=== PATIENT | female | born 1975 | race Two or more races ===

== ENCOUNTER 2024-09-09 13:32 | Emergency (ER) | payer OTHER, SELFPAY ==
[2024-09-09] VITALS (28 sets, daily range): BP systolic 75–133; BP diastolic 37–107; PULSE 71–180; RESP 7–42; TEMP 36.6–37.3; O2SAT 91–99; BMI 35.6; BMI 35.9
--- NOTE | 2024-09-09 13:39 | EKG_ITS ---
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
--- NOTE | 2024-09-09 13:41 | XR_ITS ---
Examination: AP chest single view TECHNIQUE: AP portable upright chest single view Exam date and time: September 09, 2024 at 1630 hours INDICATIONS: Shortness of breath beginning 2 days ago. FINDINGS: Normal heart size Lungs are clear. The osseous structures are intact IMPRESSION: No active disease
[2024-09-09] MEDS: ADENOSINE INJ 3 MG/ML VIAL 6 MG IVP (14:10)
--- NOTE | 2024-09-09 14:11 | EKG_ITS ---
[facility] Test Date: 2024-09-09 Pat Name: NEYMAR ARAGON Department: Room: - Gender: Female Clerk Rating: : 1975 Requested By: Balaji Gudino Order Number: [id number] Reading MD: Balaji Gudino Measurements Intervals [place] Rate: 103 P: 48 HI: 170 QRS: 7 QRSD: 92 T: 33 QT: 334 QTc: 439 Interpretive Statements SINUS TACHYCARDIA INCOMPLETE RIGHT BUNDLE BRANCH BLOCK [90+ ms QRS DURATION, TERMINAL R IN V1/V2, 40+ ms S IN I/aVL/V4/V5/V6] ABNORMAL RHYTHM ECG Compared to ECG 09/09/2024 13:44:14 Incomplete right bundle-branch block now present Supraventricular tachycardia no longer present ST (T wave) deviation no longer present /store/S0/[id number]/ecg/[id number].pdf
--- NOTE | 2024-09-09 14:12 | PD.EDARRY ---
ED Arrhythmia Palp. RME/HPI General Chief Complaint: General Adult/Misc Complain Stated Complaint: BILAT HAND TINGLING, HR 189 AT WORK Time Seen by Provider: 09/09/24 14:11 Arrival date/time: 09/09/24 13:32 RME / HPI RME / HPI narrative: 49 year old female presents to the ED for evaluation of palpitations today. States symptoms began while working and remaining constant since. Accompanied by both hands feeling tingling, nausea, and vomiting. No other symptoms reported. Denies recent illness, fevers, chills, cough, shortness of breath, abdominal pain, diarrhea, or urinary symptoms. adds patient does have history of anxiety and feels that may be a contributing factor. Related Data Home Medications ?Medication ?Instructions ?Recorded ?Confirmed No Known Home Medications 08/09/20 08/09/20 Allergies Allergy/AdvReac Type Severity Reaction Status Date / Time No Known Allergies Allergy Verified 09/09/24 13:36 Review of Systems Review of Systems Narrative Review of Systems: Constitutional: DENIES; Fevers Eyes: DENIES; Loss of vision Head/Ear/Nose: DENIES; Loss of hearing Throat: DENIES; Dysphagia Cardiovascular: SEE HPI +palpitations. DENIES; Chest pain, dyspnea or syncope Respiratory: DENIES; Shortness of breath Gastrointestinal: SEE HPI +nausea, vomiting. DENIES; Rectal bleeding or melena. Genitourinary: DENIES; Dysuria (painful or difficult urination) Musculoskeletal: SEE HPI +bilateral hands tingling. DENIES; Arthralgia (pain in a joint),; Skin: DENIES; Rash Neurological: DENIES; Loss of function or movement Psychiatric: DENIES; recent major life stressor, emotional problem, illicit drug use or abuse Endocrinology: DENIES; Weight change Hematologic/Lymphatic: DENIES; Abnormal bruising Allergic/Immunologic: DENIES; Urticaria (hives) Past Medical History Past Medical History NEUROLOGIC: Negative Neurological Disorders or Seizures CARDIAC: Negative Cardiac Disorders or Congestive Heart Failure RESPIRATORY: Negative Chronic Obstructive Pulmonary Disease (COPD) GASTROINTESTINAL: Positive Gastrointestinal Disorders, Gall Bladder Disease, Hemorrhoids and Obesity GENITOURINARY: Negative Genitourinary Disorders or Renal Disease REPRODUCTIVE: Positive Previous Pregnancies (x3) MUSCULOSKELETAL: Negative Musculoskeletal Disorders ENDOCRINE: Negative Endocrine Disorders, Diabetes Mellitus Type 1 or Diabetes Mellitus Type 2 HEMATOLOGIC: Negative Blood Disorders OTHER HISTORY: Positive Anesthesia Reactions (nauseated) Family History FAMILY HISTORY: Positive Family Cardiac Disorders, Family Gastrointestinal Problems and Family Cancer Surgical History SURGICAL: Positive Tubal Ligation Social History SMOKING STATUS: Never smoker ED Exam Narrative Physical exam: Physical Exam: General: The vital signs were reviewed. Patient has obvious SVT 171 on the monitor. Patient is tolerating well the patient is non-toxic, in no apparent distress and appears healthy with a patent airway, no respiratory distress and has no apparent circulatory problems. Head & Scalp: Normocephalic, atraumatic. Face: Appears normal and is without lesions, deformity. Ears: Left external pinna appears normal. Right external pinna appears normal. Eyes: The sclera is anicteric. No obvious photophobia. The Left and Right Orbit/Lid/Conjunctiva appears normal without swelling, discoloration or injection. Nose: The nose is without deformity, discharge or tenderness; Throat: Appears normal. The mucous membranes are pink and moist without exudates, redness or mass seen. The tongue appears normal. Neck: The neck is supple and no apparent mass or adenopathy. Chest: The chest wall is normal in size and symmetry and has no chest wall tenderness or crepitus. The patient displays normal ventilator effort without retractions, accessory muscle use and has adequate air movement bilaterally with no wheezes and no rales. Cardiovascular: Regular rate and rhythm; No murmurs, rubs, or gallops; Gastrointestinal: The abdomen appears normal. No obvious hernias or mass. The abdomen is soft and benign, non-distended, with no pain, no guarding and no rebound tenderness. Bowel sounds are present and normal sounding. No CVA tenderness. Genitourinary: Back/Spine: Normal inspection Extremities/Musculoskeletal/lymphatic: The bilateral upper and lower extremities are warm. There is no evidence of arterial insufficiency. There is no evidence of venous insufficiency/edema. The patient spontaneously moves bilateral upper and lower extremities with no pain and no limitation of movement. There is no apparent, injury or trauma. Skin: The skin is warm, dry and intact. No rashes. No petechia. No purpura. No abnormal bruising. The color is appropriate with no cyanosis. Mental status/Psychiatric: Mental status is appropriate for age. The patient has no apparent delusions, visual hallucinations, no apparent audible hallucinations. The patient has no apparent suicidal thoughts/ideation and no apparent homicidal thoughts/ideation. Neurological: The patient is awake, alert, interactive, cordial, cooperative and is oriented to name and situation. The patient follows commands and answers historical question with no impairment. There is no visual disturbance apparent. The pupils are equal and reactive bilaterally with normal eye movements and no diplopia The bilateral upper and lower extremities have normal strength, normal range of motion and normal functioning. The gait, station and balance appear to be baseline with no acute change Course Course Course Narrative: chest xray ordered to help determine etiology of chest pain. Quality Measures none Orders Category Date Time Status Clinical Lab Assistant NOW Care 09/09/24 13:42 Active EKG (ED ONLY) *Do not use* NOW Care 09/09/24 13:39 Completed EKG (ED ONLY) *Do not use* NOW Care 09/09/24 14:11 Active Insert IV NOW Care 09/09/24 13:42 Active EKG (ED Only) Stat Exams 09/09/24 13:39 Draft EKG (ED Only) Stat Exams 09/09/24 14:11 Ordered XR chest 1V portable Stat Exams 09/09/24 13:41 Ordered B-Type Natriuretic Peptide Stat Lab 09/09/24 13:41 Ordered CBC Stat Lab 09/09/24 13:41 Ordered Comprehensive Metabolic Panel Stat Lab 09/09/24 13:41 Ordered Drug Screen,Urine Stat Lab 09/09/24 13:41 Ordered Free T4 (Free Thyroxine) Stat Lab 09/09/24 13:41 Ordered HCG,Qualitative Serum Stat Lab 09/09/24 13:41 Ordered Magnesium Stat Lab 09/09/24 13:41 Ordered Partial Thromboplastin Time Stat Lab 09/09/24 13:41 Ordered Prothrombin Time with INR Stat Lab 09/09/24 13:41 Ordered TSH [Thyroid Stimulating Hormone] Stat Lab 09/09/24 13:41 Ordered Troponin I Stat Lab 09/09/24 13:41 Ordered Adenosine 6mg Inj [Adenocard Inj] Med 09/09/24 14:04 Discontinued 12 mg IVP X1 ONE Adenosine 6mg Inj [Adenocard Inj] Med 09/09/24 14:04 Discontinued 6 mg IVP X1 ONE Vital Signs Vital signs: Vital Signs Pulse Rate 174 H 09/09/24 13:42 Arrhythmia/Palpitations MDM Narrative MDM Narrative:: Patient is a 49-year-old who presents to our department with a rapid heart rate with SVT on initial EKG and monitor. She has no previous documented SVT although she has had several episodes of clammy nauseating events that were transient and intermittent. All this started in the last couple months. She does drink lots of caffeine. states she has lots of anxiety in her life. Patient was verbally consented for adenosine and explained and she agreed. She was laid flat and while on the monitor and her right arm in the air with Hep-Lock in her right AC 6 mg adenosine was given rapid Tuan and she converted from 171 SVT rate to initially upper 80s 90s to 110 with a sinus rhythm mild sinus tach. Patient tolerated the conversion well. Medical workup was ordered and reveals>>>>>>>>>> revealed a white count of 10.4 hemoglobin of 17.2 which is polycythemia platelet count was normal. PT/INR within normal limits sodium 140 potassium 3.5 chloride 105 CO2 24 BUN 17 creatinine 1.0 AST 42 ALT 61 troponin initially was normal or negative and then the second troponin was bumped at 0.103 at 1717 hrs. She be noted the second troponin was gone because the patient started complaining some nausea and some vague chest discomfort as if she had indigestion did not throw up. At that time she was in sinus rhythm and she had converted from her SVT and initially appeared to be doing quite well after the chemical cardioversion. I reevaluated this patient multiple times and at 1845 hrs. patient is now complaining of a slight headache says she just does not feel right says does not feel right does not states she is having a chest pain or pressure but an uneasiness. D-dimer came back negative I do not believe she has a pulmonary embolus. thinks that she is under a lot of stress and this is anxiety related. At this time because she complained of a headache, get a CT noncontrast study because of the vague chest symptoms and elevated troponin go ahead and get a CTA of the chest to rule out dissection and because of the nausea symptoms we will get a CT of her abdomen to follow the CTA since she has some vague abdominal discomfort. Honestly the day she does not appear to have any hard objective complaints or findings clinically but she had same time she is not feeling normal with nonspecific symptoms. Care of this patient goes to Dr. Hassan at 1900 hrs. follow-up on the further hydration CT of the head chest and abdomen and the third troponin. Patient data External records reviewed:: [facility] previous records (I reviewed ED visit on 06/13/2020) Clinical information provided by:: patient Social determinants that could affect healthcare access:: mental health (Anxiety ) Patient has the following chronic illnesses:: Anxiety How is presenting disease/condition affected by chronic disease/condition?: exacerbated by Evaluation data The following diagnostics were reviewed and interpreted by me:: lab results, radiology exam(s) and EKG tracing(s) (EKG #1 @ 1344 shows SVT, rate 169, no STEMI. EKG #2 @ 1413 after Adenosine shows sinus tachycardia, rate 103, no STEMI. ) Lab and/or radiology exams considered but not ordered:: None Interpretation Summary: Ordering Physician: Yesenia BAUM)Jorge NP Date of Service: 09/09/24 Procedure(s): XR chest 1V portable Accession Number(s): [id number] cc: Yesenia BAUM),Jorge RDZ; Finn Casey MD~ Examination: AP chest single view TECHNIQUE: AP portable upright chest single view Exam date and time: September 09, 2024 at 1630 hours INDICATIONS: Shortness of breath beginning 2 days ago. FINDINGS: Normal heart size Lungs are clear. The osseous structures are intact IMPRESSION: No active disease Dictated By: Finn Casey MD Signed By: <Electronically signed by Finn Casey MD in OV> 09/09/24 1514 Medications / Prescriptions Medications or Prescriptions considered but not ordered:: None Medication administrations:: Medication Administration History Discontinued Medications Adenosine (Adenosine Inj 3 Mg/Ml Vial) 6 mg IVP X1 ONE Stop: 09/09/24 14:05 Last Admin: 09/09/24 14:10 Dose: 6 mg Documented By: CONSTANZA Adenosine (Adenosine Inj 3 Mg/Ml Vial) 12 mg IVP X1 ONE Stop: 09/09/24 14:05 Last Admin: 09/09/24 14:10 Dose: Not Given Documented By: CONSTANZA Non-Admin Reason: Discontinued Consultations Consultation(s) initiated? (list below): No Diagnosis Differential diagnosis arrhythmia/palpitations: palpitations, anxiety, sinus tachycardia, artial flutter, supraventricular tachycardia, ventricular tachycardia and WPW Most likely diagnosis given after review of the tests above:: Patient presents with SVT etiology unclear uses lots of caffeine, elevated troponin etiology unclear unexplained nausea vague chest discomfort and headache further workup pending as mentioned in the MDM and care to Dr. Hassan at 1900 hrs. Admission Indicated Admission indicated?: not indicated Explain why admission is indicated or not indicated:: Patient signed out to Dr. Hassan Admission Request Was there a request for admission?: No Disposition Plan Disposition Plan: other (specify) (Signed out to Dr. Hassan pending reassessment. ) Critical Care Time Critical Care Time Critical Care Time: Yes Total Critical Care Time (min.): 65 Attestation: What appeared to be a relatively simple SVT chemical cardioversion has evolved to increasing chest vague discomfort nausea unexplained and increasing troponin with some minimally elevated transaminases and no other positive finding. The urine analysis is still pending. Follow-up CTs of the head chest and abdomen are pending and the care goes to Dr. Hassan to follow-up on these. The high probability of sudden, clinically significant deterioration in the patient's condition required the highest level of my preparedness to intervene urgently. The services I provided to this patient were to treat and/or prevent clinically significant deterioration. Services included the following: chart data review, reviewing nursing notes and/or old charts, documentation time, data integrity consultant collaboration regarding findings and treatment options, medication orders and management, direct patient care, vital sign assessments and ordering, interpreting and reviewing diagnostic studies and lab tests. Aggregate critical care time includes only time during which I was engaged in work directly related to the patient's care, as described above, whether at bedside or elsewhere in the Emergency Department. It did not include time spent performing other reported procedures or the services of residents, students, nurses or physician assistants. Discharge Plan Prescriptions/Referrals Prescriptions/Med Rec: No Action No Known Home Medications Problem List Clinical Impression: SVT (supraventricular tachycardia), Elevated troponin, Nausea, Marijuana use, Headache, Chest discomfort Patient/Caregiver Discharge Instructions Print Language: Sami
[2024-09-09 14:17] LABS: Basophils # (Auto) 0.1 Thou/mm3 (0.0-0.2); Basophils % (Auto) 1 % (0-2.5); Eosinophils # (Auto) 0.1 Thou/mm3 (0.0-0.5); Eosinophils % (Auto) 1 % (0-10); Hematocrit 49.7 % (36.0-46.0); Hemoglobin 17.2 g/dL (12.0-16.0); Immature Granulocytes % (Auto) 0 % (0-0); Immature Granulocytes Auto 0.02 Thou/mm3 (0.00-0.00); Lymphocytes # (Auto) 3.3 Thou/mm3 (1.0-4.8); Lymphocytes % (Auto) 31 % (10-50); Mean Corpuscular HGB Conc 34.6 g/dl (31.0-37.0); Mean Corpuscular Hemoglobin 28.8 pg (25.0-35.0); Mean Corpuscular Volume 83 fL (80-100); Monocytes # (Auto) 0.6 Thou/mm3 (0.0-0.8); Monocytes % (Auto) 6 % (0-12); Neutrophils # (Auto) 6.4 Thou/mm3 (1.8-7.7); Neutrophils % (Auto) 61 % (37-80); Nucleated Red Blood Cell % 0 /100 WBC (0); Platelet Count 310 Thou/mm3 (140-440); Red Blood Count 5.98 Miln/mm3 (4.00-5.20); White Blood Count 10.4 Thou/mm3 (3.6-11.0)
[2024-09-09 14:30] LABS: Partial Thromboplastin Time 24.5 Seconds (22.0-36.0); Prothrombin Time 10.9 Seconds (9.0-12.2)
[2024-09-09 14:36] LABS: HCG,Qualitative Serum Negative
[2024-09-09 14:37] LABS: B-Type Natriuretic Peptide 22 pg/mL (0-100)
[2024-09-09 14:41] LABS: Alanine Aminotransferase 61 U/L (10-49); Albumin, Serum 5.1 gm/dL (3.5-5.0); Albumin/Globulin Ratio 1.5 (1.2-2.2); Alkaline Phosphatase 98 U/L (46-116); Anion Gap 11 (7-16); Aspartate Amino Transferase 42 U/L (0-34); BUN/Creatinine Ratio 17 Ratio (12-20); Bilirubin,Total 0.6 mg/dL (0.3-1.2); Blood Urea Nitrogen 17 mg/dL (9-23); Carbon Dioxide 24.5 mMol/L (20.0-31.0); Chloride 105 mMol/L (98-107); Free T4 (Free Thyroxine) 1.17 ng/dL (0.89-1.76); Globulin 3.3 gm/dL (2.3-3.5); Glucose 115 mg/dL (74-106); Magnesium 1.8 mg/dL (1.6-2.6); Osmolality,Calculated 281 (275-295); Potassium 3.5 mMol/L (3.4-5.1); Sodium 140 mMol/L (136-145); Thyroid Stimulating Hormone 4.29 uIU/mL (0.55-4.78); Total Protein 8.4 gm/dL (5.7-8.2); Troponin I < 0.020 ng/mL (0.0-0.045); eGFR > 60 See Note
[2024-09-09] MEDS: ONDANSETRON INJ 2 MG/ML INJ 2 ML 4 MG IV ×2 (17:34→19:31)
[2024-09-09] MEDS: RINGERS LACTATED 1000 ML 1,000 ML 999 ML IV (17:35)
[2024-09-09 17:38] LABS: Amphetamine/Methamp Scrn,U Negative (Negative); Barbiturate Screen,Urine Negative (Negative); Benzodiazepines Screen,Urine Negative (Negative); Benzoylecgonine Screen, Ur Negative (Negative); Fentanyl Screen,Urine Negative (Negative); Opiate Screen,Urine Negative (Negative); THC Screen,Urine Positive (Negative)
[2024-09-09 18:01] LABS: Troponin I 0.103 ng/mL (0.0-0.045)
--- NOTE | 2024-09-09 18:58 | XR_ITS ---
Examination: CT brain head without contrast. 2-D sagittal coronal reconstructions Date and time of exam:September 09, 2024 1935 hrs. Indications: Headaches intermittent beginning 2 weeks ago with hand paresthesias CTDI: vol (mGy):49.7 DLP: (mGycm):1030 Technique: Multiple CT axial sections of the brain have been obtained, 5 mm slice thickness. Contrast has not been administered. 2-D sagittal, coronal reconstructions have been obtained Low dose protocols were performed. One or more of the following dose reduction techniques were used; automated exposure control, adjustment of the mA and/or KV according to patient size, use of iterative reconstruction technique. Findings: No significant ventricular enlargement. Intra-axial or extra-axial hemorrhage density is not seen. No mass effect or midline shift Basal cisterns are not remarkable. Fourth ventricle is midline. Cranial vault intact. Impression: Negative for acute hemorrhage, mass effect or midline shift Brain MRI follow-up would best assess for demyelinating disease, acute ischemic change
--- NOTE | 2024-09-09 18:58 | XR_ITS ---
Examination: CTA chest with intravenous contrast 2-D reconstructions 3-D reconstructions, vascular Date and time of exam: September 09, 2024 at 0743 hrs. Indications: Chest pain shortness of breath elevated troponin today CTDI: vol (mGy) 11.3 DLP: (mGycm) 394 Technique: Multiple axial sections of the thorax have been obtained. 3 mm slice thickness, from below the hemidiaphragms to above the apices of the lungs. Mediastinal and lung density settings have been obtained. 2-D sagittal and coronal reconstructions. 3-D angiographic renderings, 3-D volume renderings, 3D post processing, vascular maximum intensity projections obtained. Contrast administered is 100 cc Isovue-370.. Low dose protocols were performed. One or more of the following dose reduction techniques were used; automated exposure control, adjustment of the mA and/or KV according to patient size, use of iterative reconstruction technique. Findings: Nodular breast architecture, the largest nodule 10 mm medial left breast image 65 AP dimension ascending thoracic aorta 3.6 cm no thoracic aortic aneurysm dilatation or dissection Pulmonary artery segments are not enlarged No pulmonary artery emboli No paratracheal tracheobronchial or bronchopulmonary adenopathy No pneumonia or pulmonary edema or pleural disease Diffuse fatty liver Absent gallbladder Spleen not enlarged No pancreatic or adrenal mass Impression: Nodular breast architecture, the largest nodule 10 mm medial left breast Recommend elective bilateral breast sonography follow-up Negative for thoracic aortic aneurysm dilatation or dissection Negative for pulmonary artery emboli No mediastinal lymphadenopathy No pneumonia, pulmonary edema or pleural disease
--- NOTE | 2024-09-09 18:58 | XR_ITS ---
Examination: CT abdomen with intravenous contrast CT pelvis with intravenous contrast 2-D coronal reconstructions 2-D sagittal reconstructions Date and time of exam:September 09, 2024 1940 hrs. Indications: Abdominal discomfort today elevated troponin. CTDI: vol (mGy) 14.4 DLP: (mGycm) 836 Technique: Multiple axial sections of the abdomen and pelvis have been obtained. 64 slice high-resolution scanner used. 3 mm axial sections have been obtained, post intravenous injection 100 cc Isovue-370 2-D sagittal, coronal reconstructions obtained. Low dose protocols were performed. One or more of the following dose reduction techniques were used; automated exposure control, adjustment of the mA and/or KV according to patient size, use of iterative reconstruction technique. Findings: No focal liver or splenic lesions Absent gallbladder No extrahepatic biliary tract dilatation No pancreatic or adrenal mass No renal or ureteral calculi, no hydronephrosis No pericecal inflammatory change No bowel obstruction No diverticulitis Posterior uterine body mass, sagittal image 131, 39 mm Intact osseous structures Impression: No renal or ureteral calculi, no hydronephrosis No abdominal aortic aneurysm dilatation or dissection No CT findings of appendicitis bowel obstruction or diverticulitis 39 mm posterior uterine body mass, recommend pelvic sonography follow-up
[2024-09-09] MEDS: SODIUM CHLORIDE 0.9% 1000 ML 1,000 ML 999 ML IV (19:12)
--- NOTE | 2024-09-09 19:26 | EKG_ITS ---
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
[2024-09-09] MEDS: LORazepam 2 MG/ML VIAL 1 MG IVP (19:31)
--- NOTE | 2024-09-09 19:33 | EDNOTE_ITS ---
Emergency Room Addendum <Faith Ruth - Last Filed: 09/09/24 21:59> Addendum Narrative: 0600: Care assumed from Dr. Gudino, the previous shift emergency physician. Past medical, surgical, social and family history reviewed. Vitals and home medications reviewed. I will assume the care of the patient at this time, pending abdomen/pelvis CT, chest CTA, head CT, remainder of labs, and final disposition. Please refer to the emergency department record for history and examination from initial visit.? Physical exam by me shows patient under no acute distress at this time. RADIOLOGY Procedure(s): CT head/brain wo con Accession Number(s): [id number] cc: Balaji Gudino MD; Finn Casey MD; Robyn Vargas MD~ Examination: CT brain head without contrast. 2-D sagittal coronal reconstructions Date and time of exam:September 09, 2024 1935 hrs. Indications: Headaches intermittent beginning 2 weeks ago with hand paresthesias CTDI: vol (mGy):49.7 DLP: (mGycm):1030 Technique: Multiple CT axial sections of the brain have been obtained, 5 mm slice thickness. Contrast has not been administered. 2-D sagittal, coronal reconstructions have been obtained Low dose protocols were performed. One or more of the following dose reduction techniques were used; automated exposure control, adjustment of the mA and/or KV according to patient size, use of iterative reconstruction technique. Findings: No significant ventricular enlargement. Intra-axial or extra-axial hemorrhage density is not seen. No mass effect or midline shift Basal cisterns are not remarkable. Fourth ventricle is midline. Cranial vault intact. Impression: Negative for acute hemorrhage, mass effect or midline shift Brain MRI follow-up would best assess for demyelinating disease, acute ischemic change Dictated By: Finn Casey MD Procedure(s): CT angio chest Accession Number(s): [id number] cc: Balaji Gudino MD; Finn Casey MD; Robyn Vargas MD~ Examination: CTA chest with intravenous contrast 2-D reconstructions 3-D reconstructions, vascular Date and time of exam: September 09, 2024 at 0743 hrs. Indications: Chest pain shortness of breath elevated troponin today CTDI: vol (mGy) 11.3 DLP: (mGycm) 394 Technique: Multiple axial sections of the thorax have been obtained. 3 mm slice thickness, from below the hemidiaphragms to above the apices of the lungs. Mediastinal and lung density settings have been obtained. 2-D sagittal and coronal reconstructions. 3-D angiographic renderings, 3-D volume renderings, 3D post processing, vascular maximum intensity projections obtained. Contrast administered is 100 cc Isovue-370.. Low dose protocols were performed. One or more of the following dose reduction techniques were used; automated exposure control, adjustment of the mA and/or KV according to patient size, use of iterative reconstruction technique. Findings: Nodular breast architecture, the largest nodule 10 mm medial left breast image 65 AP dimension ascending thoracic aorta 3.6 cm no thoracic aortic aneurysm dilatation or dissection Pulmonary artery segments are not enlarged No pulmonary artery emboli No paratracheal tracheobronchial or bronchopulmonary adenopathy No pneumonia or pulmonary edema or pleural disease Diffuse fatty liver Absent gallbladder Spleen not enlarged No pancreatic or adrenal mass Impression: Nodular breast architecture, the largest nodule 10 mm medial left breast Recommend elective bilateral breast sonography follow-up Negative for thoracic aortic aneurysm dilatation or dissection Negative for pulmonary artery emboli No mediastinal lymphadenopathy No pneumonia, pulmonary edema or pleural disease Dictated By: Finn Casey MD ---- Procedure(s): CT abdomen pelvis w con Accession Number(s): [id number] cc: Balaji Gudino MD; Finn Casey MD; Robyn Vargas MD~ Examination: CT abdomen with intravenous contrast CT pelvis with intravenous contrast 2-D coronal reconstructions 2-D sagittal reconstructions Date and time of exam:September 09, 2024 1940 hrs. Indications: Abdominal discomfort today elevated troponin. CTDI: vol (mGy) 14.4 DLP: (mGycm) 836 Technique: Multiple axial sections of the abdomen and pelvis have been obtained. 64 slice high-resolution scanner used. 3 mm axial sections have been obtained, post intravenous injection 100 cc Isovue-370 2-D sagittal, coronal reconstructions obtained. Low dose protocols were performed. One or more of the following dose reduction techniques were used; automated exposure control, adjustment of the mA and/or KV according to patient size, use of iterative reconstruction technique. Findings: No focal liver or splenic lesions Absent gallbladder No extrahepatic biliary tract dilatation No pancreatic or adrenal mass No renal or ureteral calculi, no hydronephrosis No pericecal inflammatory change No bowel obstruction No diverticulitis Posterior uterine body mass, sagittal image 131, 39 mm Intact osseous structures Impression: No renal or ureteral calculi, no hydronephrosis No abdominal aortic aneurysm dilatation or dissection No CT findings of appendicitis bowel obstruction or diverticulitis 39 mm posterior uterine body mass, recommend pelvic sonography follow-up Dictated By: Finn Casey MD <Robyn Hassan MD - Last Filed: 09/09/24 23:28> Addendum Narrative: 0600: Care assumed from Dr. Gudino, the previous shift emergency physician. Past medical, surgical, social and family history reviewed. Vitals and home medications reviewed. I will assume the care of the patient at this time, pending abdomen/pelvis CT, chest CTA, head CT, remainder of labs, and final disposition. Please refer to the emergency department record for history and examination from initial visit.? On reevaluation the patient is complaining of chest pain. Not diaphoretic. Physical exam by me shows patient under no acute distress at this time. Patient is sleeping resting comfortably. She awakens easily. Heart rate is approximately 90. Blood pressure stable at 120/82. Mildly elevated troponin likely secondary to SVT. trop x 2 minimally elevated. Risk and benefits were discussed. At this time the family feels very comfortable going home. Patient will get follow-up with primary care physician and referral if needed. Patient made aware that her CT angio shows that she has a breast nodule. The patient states that her last mammogram was 2 years ago and will get another mammogram with her primary care physician as an outpatient. RADIOLOGY Procedure(s): CT head/brain wo [facility] Accession Number(s): [id number] cc: Balaji Gudino MD; Finn Casey MD; Robyn Vargas MD~ Examination: CT brain head without contrast. 2-D sagittal coronal reconstructions Date and time of exam:September 09, 2024 1935 hrs. Indications: Headaches intermittent beginning 2 weeks ago with hand paresthesias CTDI: vol (mGy):49.7 DLP: (mGycm):1030 Technique: Multiple CT axial sections of the brain have been obtained, 5 mm slice thickness. Contrast has not been administered. 2-D sagittal, coronal reconstructions have been obtained Low dose protocols were performed. One or more of the following dose reduction techniques were used; automated exposure control, adjustment of the mA and/or KV according to patient size, use of iterative reconstruction technique. Findings: No significant ventricular enlargement. Intra-axial or extra-axial hemorrhage density is not seen. No mass effect or midline shift Basal cisterns are not remarkable. Fourth ventricle is midline. Cranial vault intact. Impression: Negative for acute hemorrhage, mass effect or midline shift Brain MRI follow-up would best assess for demyelinating disease, acute ischemic change Dictated By: Finn Casey MD Procedure(s): CT angio chest Accession Number(s): [id number] cc: Balaji Gudino MD; Finn Casey MD; Robyn Vargas MD~ Examination: CTA chest with intravenous contrast 2-D reconstructions 3-D reconstructions, vascular Date and time of exam: September 09, 2024 at 0743 hrs. Indications: Chest pain shortness of breath elevated troponin today CTDI: vol (mGy) 11.3 DLP: (mGycm) 394 Technique: Multiple axial sections of the thorax have been obtained. 3 mm slice thickness, from below the hemidiaphragms to above the apices of the lungs. Mediastinal and lung density settings have been obtained. 2-D sagittal and coronal reconstructions. 3-D angiographic renderings, 3-D volume renderings, 3D post processing, vascular maximum intensity projections obtained. Contrast administered is 100 cc Isovue-370.. Low dose protocols were performed. One or more of the following dose reduction techniques were used; automated exposure control, adjustment of the mA and/or KV according to patient size, use of iterative reconstruction technique. Findings: Nodular breast architecture, the largest nodule 10 mm medial left breast image 65 AP dimension ascending thoracic aorta 3.6 cm no thoracic aortic aneurysm dilatation or dissection Pulmonary artery segments are not enlarged No pulmonary artery emboli No paratracheal tracheobronchial or bronchopulmonary adenopathy No pneumonia or pulmonary edema or pleural disease Diffuse fatty liver Absent gallbladder Spleen not enlarged No pancreatic or adrenal mass Impression: Nodular breast architecture, the largest nodule 10 mm medial left breast Recommend elective bilateral breast sonography follow-up Negative for thoracic aortic aneurysm dilatation or dissection Negative for pulmonary artery emboli No mediastinal lymphadenopathy No pneumonia, pulmonary edema or pleural disease Dictated By: Finn Casey MD Procedure(s): CT abdomen pelvis w con Accession Number(s): [id number] cc: Balaji Gudino MD; Finn Casey MD; Robyn Vargas MD~ Examination: CT abdomen with intravenous contrast CT pelvis with intravenous contrast 2-D coronal reconstructions 2-D sagittal reconstructions Date and time of exam:September 09, 2024 1940 hrs. Indications: Abdominal discomfort today elevated troponin. CTDI: vol (mGy) 14.4 DLP: (mGycm) 836 Technique: Multiple axial sections of the abdomen and pelvis have been obtained. 64 slice high-resolution scanner used. 3 mm axial sections have been obtained, post intravenous injection 100 cc Isovue-370 2-D sagittal, coronal reconstructions obtained. Low dose protocols were performed. One or more of the following dose reduction techniques were used; automated exposure control, adjustment of the mA and/or KV according to patient size, use of iterative reconstruction technique. Findings: No focal liver or splenic lesions Absent gallbladder No extrahepatic biliary tract dilatation No pancreatic or adrenal mass No renal or ureteral calculi, no hydronephrosis No pericecal inflammatory change No bowel obstruction No diverticulitis Posterior uterine body mass, sagittal image 131, 39 mm Intact osseous structures Impression: No renal or ureteral calculi, no hydronephrosis No abdominal aortic aneurysm dilatation or dissection No CT findings of appendicitis bowel obstruction or diverticulitis 39 mm posterior uterine body mass, recommend pelvic sonography follow-up Dictated By: Finn Casey MD
[2024-09-09] MEDS: METOCLOPRAMIDE INJ 5 MG/ML VIAL 2 ML 10 MG IVP (20:13)
[2024-09-09] MEDS: SODIUM CHLORIDE 0.9% 1000 ML 1,000 ML 150 ML IV (20:14)
[2024-09-09 23:08] LABS: Collection Type, Urine Clean Catch
[2024-09-09 23:47] LABS: Bacteria,Urine Rare; Bilirubin,Urine Negative (Negative); Blood,Urine 2+ (Negative); Budding Yeast,Urine Present; Color,Urine Lt-Yellow (Lt Yel-Yel); Culture Indicated,Urine Yes; Glucose, Urine Negative (Negative); Ketones,Urine Negative (Negative); Leukocyte Esterase,Urine Positive (Negative); Nitrite,Urine Positive (Negative); PH,Urine 6.5 (5.0-7.0); Protein,Urine Negative (Neg - Trace); RBC,Urine 36 /hpf (0-3); Squamous Epithelial Cell,Urine 2 /hpf (0-5); Urobilinogen,Urine Negative mg/dL (0.0-1.0); WBC,Urine 23 /hpf (0-5)
[2024-09-09 23:57] LABS: Clarity,Urine Hazy (Clear/Hazy)
== END 2024-09-09 23:34 | disposition home or self-care (01) ==
PROVIDERS: Emergency Medicine; Nurse Practitioner Primary Care; Emergency Provider Emergency Medicine; PCP Family Medicine
DX: I47.10 Supraventricular tachycardia, unspecified (principal); R79.89 Other specified abnormal findings of blood chemistry; R51.9 Headache, unspecified; R07.89 Other chest pain
CPT/HCPCS: 36415; 70450; 71045; 71275; 74177; 80053; 80307; 81001; 83735; 83880; 84439; 84443; 84484; 84703; 85025; 85610; 85730; 87077; 87086; 87186; 93005; 96361; 96374; 96375; 96376; 99291; A4649; J0153; J2060; J2405; J2765; J7030; J7120; Q9967

== ENCOUNTER → 2024-09-09 | Outpatient (CLI) | payer OTHER, SELFPAY ==
[2024-09-09 08:13] LABS: Basophils # (Auto) 0.1 Thou/mm3 (0.0-0.2); Basophils % (Auto) 1 % (0-2.5); Eosinophils # (Auto) 0.1 Thou/mm3 (0.0-0.5); Eosinophils % (Auto) 1 % (0-10); Hematocrit 48.7 % (36.0-46.0); Hemoglobin 16.7 g/dL (12.0-16.0); Immature Granulocytes % (Auto) 0 % (0-0); Immature Granulocytes Auto 0.02 Thou/mm3 (0.00-0.00); Lymphocytes # (Auto) 2.8 Thou/mm3 (1.0-4.8); Lymphocytes % (Auto) 33 % (10-50); Mean Corpuscular HGB Conc 34.3 g/dl (31.0-37.0); Mean Corpuscular Hemoglobin 28.9 pg (25.0-35.0); Mean Corpuscular Volume 84 fL (80-100); Monocytes # (Auto) 0.5 Thou/mm3 (0.0-0.8); Monocytes % (Auto) 6 % (0-12); Neutrophils # (Auto) 5.2 Thou/mm3 (1.8-7.7); Neutrophils % (Auto) 60 % (37-80); Nucleated Red Blood Cell % 0 /100 WBC (0); Platelet Count 271 Thou/mm3 (140-440); RDW Standard Deviation 44.7 fL (36.4-46.3); Red Blood Count 5.78 Miln/mm3 (4.00-5.20); White Blood Count 8.7 Thou/mm3 (3.6-11.0)
[2024-09-09 08:43] LABS: Glucose Estimated Average 120 mg/dL (80-131); Hemoglobin A1C 5.8 % Hgb (4.8-6.0)
[2024-09-09 08:55] LABS: Alanine Aminotransferase 60 U/L (10-49); Albumin, Serum 4.8 gm/dL (3.5-5.0); Albumin/Globulin Ratio 1.5 (1.2-2.2); Alkaline Phosphatase 96 U/L (46-116); Anion Gap 8 (7-16); Aspartate Amino Transferase 40 U/L (0-34); BUN/Creatinine Ratio 22 Ratio (12-20); Bilirubin,Total 0.6 mg/dL (0.3-1.2); Blood Urea Nitrogen 20 mg/dL (9-23); Calcium 10.1 mg/dL (8.3-10.6); Calcium (Corrected) 10.1 mg/dL (8.5-10.1); Carbon Dioxide 29.4 mMol/L (20.0-31.0); Cardiac Risk Estimate 4.3 RATIO (3.7-5.6); Chloride 104 mMol/L (98-107); Cholesterol 252 mg/dL (132-200); Creatinine (Component) 0.9 mg/dL (0.6-1.3); Free T4 (Free Thyroxine) 1.07 ng/dL (0.89-1.76); Globulin 3.1 gm/dL (2.3-3.5); Glucose 112 mg/dL (74-106); HDL Cholesterol 58 mg/dL (40-60); LDL Cholesterol,Calculated 158 mg/dL (0-130); Osmolality,Calculated 284 (275-295); Potassium 4.1 mMol/L (3.4-5.1); Sodium 141 mMol/L (136-145); Thyroid Stimulating Hormone 3.58 uIU/mL (0.55-4.78); Total Protein 7.9 gm/dL (5.7-8.2); Triglycerides 181 mg/dL (30-150); eGFR > 60 See Note
== END | disposition home or self-care (01) ==
PROVIDERS: PCP Family Medicine; Referring Provider Family Medicine; Visit Provider Family Medicine
DX: E03.9 Hypothyroidism, unspecified (principal)
CPT/HCPCS: 36415; 80053; 80061; 83036; 84439; 84443; 85025

== ENCOUNTER → 2024-10-08 | Outpatient (CLI) | payer OTHER, SELFPAY ==
--- NOTE | 2024-10-08 09:30 | XR_ITS ---
Examination: Breast ultrasound complete, bilateral Date and time of exam: October 08, 2024 0908 hours INDICATIONS: CT chest study September 09, 2024 nodular breast architecture, including 10 mm nodule medial left breast, family history, including mother, breast cancer Technique: Real-time grayscale ultrasonographic imaging bilateral breasts, including all 4 quadrants as well as nipple retroareolar and axillary regions. Findings: Sonographic images right breast 12:00 nodule 4 x 4 mm Sonographic images left breast 12:00 cyst 7 x 8 mm 10:00 oval mass lobular margins 6 x 6 mm 2. 0.1 cm axillary lymph node IMPRESSION: BI-RADS Category 0: Incomplete study. Recommend diagnostic mammography follow-up
--- NOTE | 2024-10-08 10:30 | XR_ITS ---
Examination: Diagnostic digital mammography, bilateral Computer aided detection 3-D breast Tomosynthesis, bilateral Date and time of exam: January 05, 2025 0944 hours INDICATIONS: CT chest September 09, 2024 nodular breast architecture, the largest nodule 10 mm medial left breast Technique: Nonmagnified MLO, CC views of the breasts to been obtained, reconstructed from 3-D Tomosynthesis images. R2 computer aided detection program utilized for evaluation of suspicious masses and/or abnormal calcifications. 3-D Tomosynthesis images obtained. Findings: The breasts are heterogeneously dense, which may obscure small masses 20 mm focal asymmetry right breast posterior depth nipple level CC view 16 mm focal asymmetry upper outer left breast mid depth Impression: BI-RADS Category 0: Incomplete: Need additional imaging evaluation 20 mm focal asymmetry right breast CC view posterior depth nipple level, recommend follow-up spot tomographic CC view, spot tomographic MLO view upper right breast 16 mm focal asymmetry upper outer left breast mid depth, recommend follow-up spot tomographic views Please see the bilateral breast sonography report today, 6 month bilateral breast sonography follow-up is needed
== END | disposition home or self-care (01) ==
LOC: CDIM 08:48
PROVIDERS: Referring Provider Family Medicine; Visit Provider Family Medicine
DX: N64.89 Other specified disorders of breast (principal)
CPT/HCPCS: 76641; 77062; 77066; G0279

== ENCOUNTER → 2024-10-23 | Outpatient (CLI) | payer OTHER, SELFPAY ==
--- NOTE | 2024-10-23 10:30 | XR_ITS ---
Examination: Diagnostic digital mammography, bilateral Computer aided detection 3-D breast Tomosynthesis, bilateral Date and time of exam: November 02, 2024 1021 hours INDICATIONS: Mammogram October 08, 2024 20 mm focal asymmetry right breast nipple level cc view, 16 mm focal asymmetry outer left breast CC view Technique: Nonmagnified MLO, CC views of the breasts to been obtained, reconstructed from 3-D Tomosynthesis images. R2 computer aided detection program utilized for evaluation of suspicious masses and/or abnormal calcifications. 3-D Tomosynthesis images obtained. Findings: The breasts are heterogeneously dense, which may obscure small masses Focal asymmetry remains nipple level right breast CC view and outer left breast CC view Impression: BI-RADS Category 3: Probably benign findings One additional 6 month bilateral mammography follow-up is needed.
== END | disposition home or self-care (01) ==
LOC: CDIM 10:16
PROVIDERS: PCP Family Medicine; Referring Provider Family Medicine; Visit Provider Family Medicine
DX: R92.2 Inconclusive mammogram (principal)
CPT/HCPCS: 77062; 77066; G0279

== ENCOUNTER → 2025-03-09 | Outpatient (CLI) | payer OTHER, SELFPAY ==
[2025-03-09 09:04] LABS: Glucose Estimated Average 126 mg/dL (80-131); Hemoglobin A1C 6.0 % Hgb (4.8-6.0)
[2025-03-09 09:17] LABS: Cardiac Risk Estimate 4.7 RATIO (3.7-5.6); Cholesterol 250 mg/dL (132-200); HDL Cholesterol 53 mg/dL (40-60); LDL Cholesterol,Calculated 160 mg/dL (0-130); Triglycerides 184 mg/dL (30-150)
[2025-03-09 09:59] LABS: Hepatitis A Antibody IgM Non Reactive (Non React); Hepatitis B Core Antibody IgM Non Reactive (Non React); Hepatitis B Surface Antigen Non Reactive (Non React); Hepatitis C Antibody Non Reactive (Non React)
== END | disposition home or self-care (01) ==
LOC: COPL 07:07
PROVIDERS: PCP Family Medicine; Referring Provider Family Medicine; Visit Provider Family Medicine
DX: R74.01 Elevation of levels of liver transaminase levels (principal); I10 Essential (primary) hypertension; E78.00 Pure hypercholesterolemia, unspecified
CPT/HCPCS: 36415; 80061; 80074; 83036

== ENCOUNTER → 2025-05-21 | Outpatient (CLI) | payer OTHER, SELFPAY ==
[2025-05-21 09:47] LABS: Glucose Estimated Average 120 mg/dL (80-131); Hemoglobin A1C 5.8 % Hgb (4.8-6.0)
[2025-05-21 10:05] LABS: Alanine Aminotransferase 54 U/L (10-49); Albumin, Serum 4.5 gm/dL (3.5-5.0); Albumin/Globulin Ratio 1.6 (1.2-2.2); Alkaline Phosphatase 96 U/L (46-116); Anion Gap 8 (7-16); Aspartate Amino Transferase 39 U/L (0-34); BUN/Creatinine Ratio 15 Ratio (12-20); Bilirubin,Total 0.6 mg/dL (0.3-1.2); Blood Urea Nitrogen 12 mg/dL (9-23); Calcium 9.2 mg/dL (8.3-10.6); Calcium (Corrected) 9.2 mg/dL (8.5-10.1); Carbon Dioxide 24.9 mMol/L (20.0-31.0); Cardiac Risk Estimate 3.2 RATIO (3.7-5.6); Chloride 108 mMol/L (98-107); Cholesterol 175 mg/dL (132-200); Creatinine (Component) 0.8 mg/dL (0.6-1.3); Globulin 2.8 gm/dL (2.3-3.5); Glucose 110 mg/dL (74-106); HDL Cholesterol 55 mg/dL (40-60); LDL Cholesterol,Calculated 90 mg/dL (0-130); Osmolality,Calculated 281 (275-295); Potassium 3.8 mMol/L (3.4-5.1); Sodium 141 mMol/L (136-145); Total Protein 7.3 gm/dL (5.7-8.2); Triglycerides 151 mg/dL (30-150); eGFR > 60 See Note
== END | disposition home or self-care (01) ==
LOC: COPL 08:38
PROVIDERS: PCP Family Medicine; Referring Provider Family Medicine; Visit Provider Family Medicine
DX: E78.2 Mixed hyperlipidemia (principal); R74.01 Elevation of levels of liver transaminase levels; R73.09 Other abnormal glucose
CPT/HCPCS: 36415; 80053; 80061; 83036